=== PATIENT | female | born 1965 | race Caucasian/White ===

== ENCOUNTER 2017-05-28 20:05 | Emergency (ER) | payer BC, OTHER ==
[~2017-05-28] VITALS: Ht 160 cm; Wt 112.5 kg
[~2017-05-28 20:05] MED LIST: DIPH25CA58; FOLI1TAB16 PO; HYDR-971 PO; METH2.5T PO; METH25VI27; PRED5SOL
[2017-05-28] MEDS ORDERED: KETOROLAC 30 MG/ML VIAL. ONE (20:24)
[2017-05-28] MEDS ORDERED: KETOROLAC 30 MG/ML VIAL. IM ONE (20:30)
--- NOTE | 2017-05-28 21:07 | RAD ---
3 view study of the right wrist HISTORY: Twisting injury with right wrist pain. FINDINGS: No acute fracture or dislocation or osteolytic process is seen. 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 IMPRESSION: No acute fracture. Electronically signed by: Shin Crawford MD (05/28/2017 9:04 PM) [facility]
--- NOTE | 2017-05-28 22:00 | PHYS DOC ---
Past History Past Medical History: Arthritis Past Surgical History: Other Smoking: Non-smoker Alcohol Use: None Drug Use: None Adult General Chief Complaint Chief Complaint: WRIST PAIN HPI HPI 81-year-old female with a history of arthritis now status post right wrist injury. Patient was pushing down on a table while getting out of a chair when she felt sudden discomfort in her right wrist and it's been sore since. Injury happened earlier today. She had no fall or other injury to it. trace swelling no ecchymosis. Review of Systems Review of Systems Constitutional: Denies fever or chills [] Eyes: Denies change in visual acuity, redness, or eye pain [] HENT: Denies nasal congestion or sore throat [] Respiratory: Denies cough or shortness of breath [] Cardiovascular: No additional information not addressed in HPI [] GI: Denies abdominal pain, nausea, vomiting, bloody stools or diarrhea [] : Denies dysuria or hematuria [] Musculoskeletal: Denies back pain or joint pain [] Integument: Denies rash or skin lesions [] Neurologic: Denies headache, focal weakness or sensory changes [] Endocrine: Denies polyuria or polydipsia [] Current Medications Current Medications Current Medications Medications (Trade) Dose Ordered Sig/Traci Start Time Stop Time Status Last Admin Dose Admin Ketorolac Tromethamine (Toradol) 30 mg STK-MED ONCE 05/28/17 20:24 05/28/17 20:25 DC Allergies Allergies Allergies Coded Allergies Type Severity Reaction Last Updated Verified infliximab Allergy Severe ANAPHYLAXIS 08/20/15 Yes gelatin Allergy Intermediate 08/20/15 Yes latex Allergy Intermediate 12/17/13 Yes Physical Exam Physical Exam Well-appearing patient no acute distress mild soft tissue tenderness mid right wrist on the dorsum. No bony tenderness or deformity. Neurovascularly intact distally. Constitutional: Well developed, well nourished, no acute distress, non-toxic appearance. [] HENT: Normocephalic, atraumatic, bilateral external ears normal, oropharynx moist, no oral exudates, nose normal. [] Eyes:, EOMI, conjunctiva normal, no discharge. [] Neck: Normal range of motion, no tenderness, supple, no stridor. [] Cardiovascular: No tachycardia Lungs & Thorax: Normal and symmetrical chest wall excursion Abdomen distended abdomen Skin: Warm, dry, no erythema, no rash. [] Back: No tenderness, no CVA tenderness. [] Extremities: No tenderness, no cyanosis, no clubbing, ROM intact, no edema. [] Neurologic: Alert and oriented X 3, normal motor function, normal sensory function, no focal deficits noted. [] Psychologic: Affect normal, judgement normal, mood normal. [] Current Patient Data Vital Signs Vital Signs Date Time Temp Pulse Resp B/P (MAP) Pulse Ox O2 Delivery O2 Flow Rate FiO2 05/28/17 20:05 98.0 96 20 98 Room Air EKG EKG [] Radiology/Procedures Radiology/Procedures X-ray right wrist with chronic changes accessory center of ossification distal to ulnar styloid as well as radial aspect of carpal bones. Chronic changes no acute disease. Interpreted by me and report reviewed[] Course & Med Decision Making Course & Med Decision Making Pertinent Labs and Imaging studies reviewed. (See chart for details) Signs and symptoms consistent with mild right wrist sprain confirmed by x-ray. Patient predisposed to discomfort given history of arthritis. Splint applied. Patient were to rest ice and elevate. She will take NSAIDs and follow up with primary care doctor for reevaluation and referral to orthopedics as needed. [] Dragon Disclaimer Dragon Disclaimer This chart was dictated in whole or in part using Voice Recognition software in a busy, high-work load, and often noisy Emergency Department environment. It may contain unintended and wholly unrecognized errors or omissions. Departure Departure: Impression: Primary Impression: Sprain of right wrist Additional Impression: Right wrist pain Disposition: 01 HOME, SELF-CARE Condition: GOOD Referrals: ZIGGY GAITAN APRN (PCP) Patient Instructions: Wrist Sprain with [facility] Additional Instructions: You have suffered a right wrist sprain. Rest ice and elevate whenever possible. Take ibuprofen every 6 hours as needed for pain and wear splint removing only for bathing until follow-up with orthopedics in 2 days. Avoid strenuous use of that wrist and hand until cleared by orthopedics. Problem Qualifiers JOSIE THACKER MD May 28, 2017 22:00
[2017-05-28 22:06] VITALS: BP 157/81
== END 2017-05-28 22:06 | disposition home or self-care (01) ==
LOC: ER 20:05
DX: S63.501A Unspecified sprain of right wrist, initial encounter (principal); M19.90 Unspecified osteoarthritis, unspecified site; Z88.8 Allergy status to other drugs, medicaments and biological substances; Z91.040 Latex allergy status; X58.XXXA Exposure to other specified factors, initial encounter; Y93.89 Activity, other specified; Y99.8 Other external cause status; Y92.89 Other specified places as the place of occurrence of the external cause
CPT/HCPCS: 29125; 73110; 96372; 99284; J1885

== ENCOUNTER 2017-06-13 07:08 | Emergency (ER) | payer BC ==
[2017-06-13] MEDS ORDERED: KETOROLAC 30 MG/ML VIAL. IM ONE (08:15)
[2017-06-13] MEDS ORDERED: KETOROLAC 60 MG/2 ML VIAL. IM ONE (08:15)
[2017-06-13] MEDS ORDERED: methylPREDNISolone SOD SUCC PF 40 MG/ML VIAL. IM ONE (08:15)
[2017-06-13] MEDS ORDERED: PRED-220 PO (08:17)
--- NOTE | 2017-06-13 08:18 | PHYS DOC ---
Past History Past Medical History: Arthritis Past Surgical History: Other Smoking: Non-smoker Alcohol Use: None Drug Use: None Adult General Chief Complaint Chief Complaint: LOWER EXT PAIN HPI HPI Patient is a 51 year old F who presents with constant dull L knee pain that is worse with movement and palpation. She states that his more painful when she bears weight. Her pain improved with rest and positioning. She does have a history of rheumatoid arthritis. She has been unable to receive treatment as she is unable to afford co-pays associated with her doctor's visits. She's been off medication for the past 6 years. Prior to this she was on disease modifying medications and was told that she had a severe form of rheumatoid arthritis. This feels similar to previous flares of rheumatoid arthritis which were improved with steroids. Review of Systems Review of Systems Constitutional: Denies fever or chills [] Eyes: Denies change in visual acuity, redness, or eye pain [] HENT: Denies nasal congestion or sore throat [] Respiratory: Denies cough or shortness of breath [] Cardiovascular: No additional information not addressed in HPI [] GI: Denies abdominal pain, nausea, vomiting, bloody stools or diarrhea [] : Denies dysuria or hematuria [] Musculoskeletal: Negative except history of present illness Integument: Denies rash or skin lesions [] Neurologic: Denies headache, focal weakness or sensory changes [] Endocrine: Denies polyuria or polydipsia [] All other systems were reviewed and found to be within normal limits, except as documented in this note. Family History Family History Noncontributory Current Medications Current Medications Medications reviewed Allergies Allergies Allergies Coded Allergies Type Severity Reaction Last Updated Verified infliximab Allergy Severe ANAPHYLAXIS 08/20/15 Yes gelatin Allergy Intermediate 08/20/15 Yes latex Allergy Intermediate 12/17/13 Yes Physical Exam Physical Exam Constitutional: Well developed, well nourished, no acute distress, non-toxic appearance. [] HENT: Normocephalic, atraumatic, Eyes: PERRLA, EOMI, conjunctiva normal, no discharge. [] Neck: Normal range of motion, no tenderness, supple, no stridor. [] Cardiovascular:Heart rate regular rhythm Lungs & Thorax: Bilateral breath sounds clear to auscultation [] Abdomen: Bowel sounds normal, soft, no tenderness, no masses, no pulsatile masses. [] Skin: Warm, dry, no erythema, no rash. [] Back: No tenderness, no CVA tenderness. [] Extremities: Mild swelling in the left knee. Generalized tenderness to palpation. Pain with range of motion and limitation of extension by approximately 10-15. Strength 5 out of 5 bilateral lower extremities. Neurovascularly intact Neurologic: Alert and oriented X 3, normal motor function, normal sensory function, no focal deficits noted. [] Psychologic: Affect normal, judgement normal, mood normal. [] Current Patient Data Vital Signs Vital Signs Date Time Temp Pulse Resp B/P (MAP) Pulse Ox O2 Delivery O2 Flow Rate FiO2 06/13/17 08:46 77 18 114/72 (86) 95 Room Air 06/13/17 07:08 97.5 91 18 94 Room Air EKG EKG [] Radiology/Procedures Radiology/Procedures Imaging was declined Course & Med Decision Making Course & Med Decision Making Pertinent Labs and Imaging studies reviewed. (See chart for details) Previous records were reviewed Dragon Disclaimer Dragon Disclaimer This electronic medical record was generated, in whole or in part, using a voice recognition dictation system. Departure Departure: Impression: Primary Impression: Rheumatoid arthritis flare Disposition: HOME, SELF-CARE Condition: STABLE Referrals: DALTON VOSS MD (PCP) Patient Instructions: Rheumatoid Arthritis Additional Instructions: Elizabeth was seen in the emergency department for left knee pain. No emergency medical condition was found on history or physical exam. Her symptoms are most consistent with rheumatoid arthritis flare. She was given medication in the ER as well as a prescription for prednisone. She is advised to return the emergency room if she develops new or worsening symptoms. She is also advised follow-up with her computer mechanic as soon as possible for further management. Scripts Diclofenac Sodium (VOLTAREN) 100 Gm Gel..gram. 1 GM TP QID, #100 GM 2 Refills Prov: LESA SAGASTUME MD 06/13/17 Diclofenac Sodium (VOLTAREN) 100 Gm Gel..gram. 1 GM TP QID, #100 GM 2 Refills Prov: LESA SAGASTUME MD 06/13/17 Prednisone (PREDNISONE) 10 Mg Tablet 10 MG PO DAILY for 16 Days, #40 TAB 4tab x 4days, 3tabs x 4days, 2 tabs x 4days, 1tab x 4days Prov: LESA SAGASTUME MD 06/13/17 LESA SAGASTUME MD Jun 13, 2017 08:18
[2017-06-13 08:46] VITALS: BP 114/72
[2017-06-13] MEDS ORDERED: DICL100G18 TP ×2 (08:46→08:47)
== END 2017-06-13 08:46 | disposition home or self-care (01) ==
LOC: ER 07:08
DX: M06.862 Other specified rheumatoid arthritis, left knee (principal); Z88.8 Allergy status to other drugs, medicaments and biological substances; Z91.040 Latex allergy status
CPT/HCPCS: 96372; 99284; J1885; J2920

== ENCOUNTER 2017-08-05 18:54 | Emergency (ER) | payer BC ==
[~2017-08-05] VITALS: Ht 160 cm; Wt 111.3 kg
[~2017-08-05 18:54] MED LIST changes: +DICL100G18 TP; +PRED-220 PO
[2017-08-05 19:00] VITALS: BP 167/88
[2017-08-05] MEDS ORDERED: KETOROLAC 60 MG/2 ML VIAL. IM ONE (20:00)
[2017-08-05] MEDS ORDERED: TRAM1TAB56 PO (20:06)
--- NOTE | 2017-08-05 20:06 | PHYS DOC ---
Past History Past Medical History: Arthritis Past Surgical History: Other Smoking: Non-smoker Alcohol Use: None Drug Use: None Adult General Chief Complaint Chief Complaint: UPPER EXTREMITY INJURY HPI HPI Patient is a 5 51-year-old female who presents with complaint of isolated right upper extremity pain that is similar to previous flares of arthritis. No recent trauma. No fevers, no chills, no changes of the skin. Review of Systems Review of Systems Constitutional: Denies fever or chills [] Eyes: Denies change in visual acuity, redness, or eye pain [] HENT: Denies pain Respiratory: Denies cough or shortness of breath [] Cardiovascular: No pain GI: Denies abdominal pain, nausea, vomiting, Musculoskeletal: Denies back pain or joint pain except for right upper arm pain Integument: Denies rash or skin lesions [] Neurologic: Denies headache, focal weakness or sensory changes [] All other systems were reviewed and found to be within normal limits, except as documented in this note. Current Medications Current Medications Current Medications Medications (Trade) Dose Ordered Sig/Traci Start Time Stop Time Status Last Admin Dose Admin Ketorolac Tromethamine (Toradol) 60 mg 1X ONCE 08/05/17 20:00 08/05/17 20:01 UNV Allergies Allergies Allergies Coded Allergies Type Severity Reaction Last Updated Verified infliximab Allergy Severe ANAPHYLAXIS 08/20/15 Yes gelatin Allergy Intermediate 08/20/15 Yes latex Allergy Intermediate 12/17/13 Yes Physical Exam Physical Exam Constitutional: Well developed, well nourished, no acute distress, non-toxic appearance. [] HENT: Normocephalic, atraumatic, Eyes: EOMI, conjunctiva normal, no discharge. [] Neck: Normal range of motion, , no stridor. [] Cardiovascular:Heart rate regular rhythm, no murmur, normal perfusion Lungs & Thorax: No tachypnea Abdomen: No distention Skin: Warm, dry, no erythema, no rash. No signs of infection. No bruising, no ecchymosis, no swelling Back: No tenderness, no CVA tenderness. Normal range of motion Extremities: No tenderness, no cyanosis, no clubbing, ROM intact, no edema. No DVT, neurovascularly intact distally. Patient is able to range arm and hold it up. No signs of septic joint in the upper extremity right Neurologic: Alert and oriented X 3, normal motor function,, no focal deficits noted. [] Psychologic: Affect normal, judgement normal, mood normal. [] EKG EKG [] Radiology/Procedures Radiology/Procedures [] Course & Med Decision Making Course & Med Decision Making Pertinent Labs and Imaging studies reviewed. (See chart for details) [] Dragon Disclaimer Dragon Disclaimer This electronic medical record was generated, in whole or in part, using a voice recognition dictation system. Departure Departure: Impression: Primary Impression: Upper arm pain Disposition: HOME, SELF-CARE Condition: LEFT WITHOUT BEING SEEN Referrals: DALTON VOSS MD (PCP) Please follow-up for with your doctor for recheck and relation in 2 days Patient Instructions: Arthritis, Nonspecific, Muscle Strain Scripts Tramadol Hcl/Acetaminophen (ULTRACET TABLET) 1 Each Tablet 1 TAB PO Q6HRS for 2 Days, #8 TAB Prov: Zaida CAMERON MD 08/05/17 Zaida CAMERON MD Aug 05, 2017 20:06
== END 2017-08-05 20:27 | disposition home or self-care (01) ==
LOC: ER 18:54
DX: M79.601 Pain in right arm (principal); M19.90 Unspecified osteoarthritis, unspecified site; Z88.8 Allergy status to other drugs, medicaments and biological substances; Z91.040 Latex allergy status
CPT/HCPCS: 96372; 99283; J1885

== ENCOUNTER 2019-04-25 07:43 | Emergency (ER) | payer BC ==
[~2019-04-25] VITALS: Ht 160 cm; Wt 94.3 kg
[~2019-04-25 07:43] MED LIST changes: +HYDR-3165 PO; -HYDR-971 PO; +TRAM1TAB56 PO
[2019-04-25 07:55] VITALS: BP 126/82
[2019-04-25] MEDS ORDERED: PRED-220 PO (08:19)
--- NOTE | 2019-04-25 08:20 | PHYS DOC ---
Past History Past Medical History: Arthritis Past Surgical History: Knee Replacement, Other Additional Past Surgical Histo: Left heel repair Smoking: Non-smoker Alcohol Use: None Drug Use: None Adult General Chief Complaint Chief Complaint: WRIST PAIN HPI HPI 53-year-old female presents with right wrist pain. Patient came home after work yesterday was having pain in her right wrist and throughout her right hand. It has swollen more overnight. The patient has a history of osteoarthritis as well as rheumatoid arthritis. She has not been taking chronic rheumatoid arthritis medication, 7 years. She has not taken any medication for this pain. She denies any trauma. She denies fever or chills. She has no other complaints at this time. Review of Systems Review of Systems Constitutional: Denies fever or chills [] Eyes: Denies change in visual acuity, redness, or eye pain [] HENT: Denies nasal congestion or sore throat [] Respiratory: Denies cough or shortness of breath [] Cardiovascular: No additional information not addressed in HPI [] GI: Denies abdominal pain, nausea, vomiting, bloody stools or diarrhea [] : Denies dysuria or hematuria [] Musculoskeletal: Right hand and wrist pain.[] Integument: Denies rash or skin lesions [] Neurologic: Denies headache, focal weakness or sensory changes [] Endocrine: Denies polyuria or polydipsia [] All other systems were reviewed and found to be within normal limits, except as documented in this note. Allergies Allergies Allergies Coded Allergies Type Severity Reaction Last Updated Verified infliximab Allergy Severe ANAPHYLAXIS 08/20/15 Yes gelatin Allergy Intermediate 08/20/15 Yes latex Allergy Intermediate 12/17/13 Yes Physical Exam Physical Exam Constitutional: Well developed, well nourished, no acute distress, non-toxic appearance. [] HENT: Normocephalic, atraumatic, bilateral external ears normal, oropharynx moist, no oral exudates, nose normal. [] Eyes: PERRLA, EOMI, conjunctiva normal, no discharge. [] Neck: Normal range of motion, no tenderness, supple, no stridor. [] Cardiovascular:Heart rate regular rhythm, no murmur [] Lungs & Thorax: Bilateral breath sounds clear to auscultation [] Abdomen: Bowel sounds normal, soft, no tenderness, no masses, no pulsatile masses. [] Skin: Warm, dry, no erythema, no rash. [] Back: No tenderness, no CVA tenderness. [] Extremities: Tenderness with palpation of right wrist and hand, some swelling, no obvious deformity or ecchymosis.[] Neurologic: Alert and oriented X 3, normal motor function, normal sensory function, no focal deficits noted. [] Psychologic: Affect normal, judgement normal, mood normal. [] Current Patient Data Vital Signs Vital Signs Date Time Temp Pulse Resp B/P (MAP) Pulse Ox O2 Delivery O2 Flow Rate FiO2 04/25/19 07:55 97.9 84 18 95 Room Air EKG EKG [] Radiology/Procedures Radiology/Procedures [] Impressions: Examination: WRIST 3V RIGHT History: Pain and swelling. No injury. Comparison/Correlation: None Findings: Total 3 images of the right wrist were obtained. First carpometacarpal joint degenerative spurring is noted with remodeling of the joint space. No acute fracture or bone destruction. Bony density distal to the ulnar styloid may represent an old nonunion fracture or accessory ossification center. Soft tissues are unremarkable. Impression: Degenerative changes of the first carpometacarpal joint. Electronically signed by: Portillo Bauer MD (04/25/2019 8:24 AM) [facility] DICTATED AND SIGNED BY: PORTILLO BAUER MD DATE: 04/25/19823 CC: FLOR ODOM DO; DALTON VOSS MD ~ Course & Med Decision Making Course & Med Decision Making Pertinent Labs and Imaging studies reviewed. (See chart for details) The patient's x-ray is negative for acute findings. See official report for more details. I will treat the patient for an arthritis flare. We will give her 40 mg of prednisone in the ER followed by a 7 day taper. She is stable for discharge at this time. [] Dragon Disclaimer Dragon Disclaimer This electronic medical record was generated, in whole or in part, using a voice recognition dictation system. Departure Departure: Impression: Primary Impression: Rheumatoid arthritis flare Disposition: 01 HOME, SELF-CARE Condition: STABLE Referrals: DALTON VOSS MD (PCP) Patient Instructions: Rheumatoid Arthritis, [id number] Scripts Prednisone (PREDNISONE) 10 Mg Tablet 10 MG PO UD for PREDNISONE TAPER, #15 TAB 0 Refills Take 4 tablets by mouth daily for 2 days, then take 2 tablets by mouth daily for 2 days, then take 1 tablet by mouth daily x 3 days, then stop. Prov: FLOR ODOM DO 04/25/19 FLOR ODOM DO Apr 25, 2019 08:19
--- NOTE | 2019-04-25 08:27 | RAD ---
Examination: WRIST 3V RIGHT History: Pain and swelling. No injury. Comparison/Correlation: None Findings: Total 3 images of the right wrist were obtained. First carpometacarpal joint degenerative spurring is noted with remodeling of the joint space. No acute fracture or bone destruction. Bony density distal to the ulnar styloid may represent an old nonunion fracture or accessory ossification center. Soft tissues are unremarkable. Impression: Degenerative changes of the first carpometacarpal joint. Electronically signed by: Johnny Pepper MD (04/25/2019 8:24 AM) [facility]
[2019-04-25] MEDS ORDERED: predniSONE 20 MG TABLET ONE (08:38)
[2019-04-25] MEDS ORDERED: predniSONE 20 MG TABLET PO ONE (09:00)
== END 2019-04-25 08:45 | disposition home or self-care (01) ==
LOC: ER 07:43
DX: M06.831 Other specified rheumatoid arthritis, right wrist (principal); Z88.8 Allergy status to other drugs, medicaments and biological substances; Z91.040 Latex allergy status
CPT/HCPCS: 73110; 99284; J7512

== ENCOUNTER 2019-08-05 08:28 | Emergency (ER) | payer BC ==
[~2019-08-05] VITALS: Ht 160 cm; Wt 124.7 kg
[~2019-08-05 08:28] MED LIST changes: +OSEL75CA PO
--- NOTE | 2019-08-05 09:17 | PHYS DOC ---
Past History Past Medical History: Other Additional Past Medical Histor: "gallbladder problem, no stones", "fat on liver, open on intestine wide",RA Past Surgical History: Other Additional Past Surgical Histo: rt ooporectomy, rt knee, left heel Alcohol Use: None Drug Use: None Adult General Chief Complaint Chief Complaint: CHEST PAIN-NON CARDIAC NATURE HPI HPI 53-year-old female presents with chest pain. The patient has been battling influenza B, bronchitis, sinus infection. I saw the patient on and diagnosed her with influenza. It has been about 2 weeks since that time. The patient presents today because she has developed a central chest discomfort. She describes it as a squeezing pain that is moderate in intensity. She's never had chest pain before and this made her more concerned. She no longer has a fever. She has continued to cough throughout her illness. Her shortness of breath is not worse, but she has been using albuterol every 4 hours for the last 1-2 days. Review of Systems Review of Systems Constitutional: Denies fever or chills [] Eyes: Denies change in visual acuity, redness, or eye pain [] HENT: nasal congestion [] Respiratory: Cough with shortness of breath [] Cardiovascular: No additional information not addressed in HPI [] GI: Denies abdominal pain, nausea, vomiting, bloody stools or diarrhea [] : Denies dysuria or hematuria [] Musculoskeletal: Denies back pain or joint pain [] Integument: Denies rash or skin lesions [] Neurologic: Denies headache, focal weakness or sensory changes [] Endocrine: Denies polyuria or polydipsia [] All other systems were reviewed and found to be within normal limits, except as documented in this note. Allergies Allergies Allergies Coded Allergies Type Severity Reaction Last Updated Verified abatacept Allergy Intermediate 08/05/19 Yes gelatin Allergy Intermediate 08/05/19 Yes amoxicillin Allergy Unknown Itching 08/05/19 Yes infliximab Allergy Unknown 08/05/19 Yes Physical Exam Physical Exam Constitutional: Well developed, well nourished, no acute distress, non-toxic appearance. [] HENT: Normocephalic, atraumatic, bilateral external ears normal, oropharynx moist, no oral exudates, nose normal. [] Eyes: PERRLA, EOMI, conjunctiva normal, no discharge. [] Neck: Normal range of motion, no tenderness, supple, no stridor. [] Cardiovascular:Heart rate regular rhythm, no murmur [] Lungs & Thorax: Bilateral breath sounds clear to auscultation [] Abdomen: Bowel sounds normal, soft, no tenderness, no masses, no pulsatile masses. [] Skin: Warm, dry, no erythema, no rash. [] Back: No tenderness, no CVA tenderness. [] Extremities: No tenderness, no cyanosis, no clubbing, ROM intact, no edema. [] Neurologic: Alert and oriented X 3, normal motor function, normal sensory function, no focal deficits noted. [] Psychologic: Affect normal, judgement normal, mood normal. [] Current Patient Data Vital Signs Vital Signs Date Time Temp Pulse Resp B/P (MAP) Pulse Ox O2 Delivery O2 Flow Rate FiO2 08/05/19 08:38 98.5 92 18 96 Room Air EKG EKG Sinus rhythm, rate 75, normal axis, no ST elevations or depressions.[] Radiology/Procedures Radiology/Procedures [] Impressions: CHEST PA LATERAL Clinical indications: Cough and chest pain COMPARISON: April 23, 2019. Findings: No acute lung infiltrate or pleural effusion or pulmonary edema or lung mass or pneumothorax is seen. The heart size, pulmonary vasculature, mediastinum and both charline are unremarkable. The osseous structures appear intact. Impression: No acute radiographic abnormality is seen. Electronically signed by: Alvaro Crawford MD (08/05/2019 9:20 AM) [id number] DICTATED AND SIGNED BY: ALVARO CRAWFORD MD DATE: 08/05/19 0920 CC: FLOR ODOM DO; DALTON VOSS MD ~ Course & Med Decision Making Course & Med Decision Making Pertinent Labs and Imaging studies reviewed. (See chart for details) The patient's EKG is unremarkable. Her chest x-rays negative for acute findings. Her troponin is negative. Her other labs are unremarkable. I believe the patient's chest discomfort is musculoskeletal from coughing. I inform the patient she may continue to cough for a few more weeks due to some respiratory illnesses. She is stable for discharge at this time. [] Dragon Disclaimer Dragon Disclaimer This electronic medical record was generated, in whole or in part, using a voice recognition dictation system. Departure Departure: Impression: Primary Impression: Chest wall pain Additional Impression: Cough in adult Disposition: 01 HOME, SELF-CARE Condition: STABLE Referrals: DALTON VOSS MD (PCP) Patient Instructions: Chest Wall Pain, [id number] Problem Qualifiers FLOR ODOM DO Aug 05, 2019 09:17
--- NOTE | 2019-08-05 09:22 | RAD ---
CHEST PA LATERAL Clinical indications: Cough and chest pain COMPARISON: April 23, 2019. Findings: No acute lung infiltrate or pleural effusion or pulmonary edema or lung mass or pneumothorax is seen. The heart size, pulmonary vasculature, mediastinum and both charline are unremarkable. The osseous structures appear intact. Impression: No acute radiographic abnormality is seen. Electronically signed by: Shin Crawford MD (08/05/2019 9:20 AM) [id number]
[2019-08-05] MEDS ORDERED: IV NORMAL SALINE 1,000ML 1,000 ML IV ONE (09:30)
[2019-08-05 09:38] LABS: BASO # 0.1 x10^3/uL (0.0-0.2); BASO % 1 % (0-3); EOS # 0.1 x10^3/uL (0.0-0.7); EOS % 1 % (0-3); HEMATOCRIT 46.4 % (36.0-47.0); HEMOGLOBIN 15.7 g/dL (12.0-15.5); LYMPH # 1.6 x10^3/uL (1.0-4.8); LYMPH % 24 % (24-48); MEAN CORPUSCULAR HEMOGLOBIN 31 pg (25-35); MEAN CORPUSCULAR HGB CONC 34 g/dL (31-37); MEAN CORPUSCULAR VOLUME 92 fL (79-100); MONO # 0.7 x10^3/uL (0.0-1.1); MONO % 10 % (0-9); NEUT # 4.1 x10^3uL (1.8-7.7); NEUT % 63 % (31-73); PLATELET COUNT 254 x10^3/uL (140-400); RED BLOOD COUNT 5.04 x10^6/uL (3.50-5.40); RED CELL DISTRIBUTION WIDTH 13.7 % (11.5-14.5); WHITE BLOOD COUNT 6.5 x10^3/uL (4.0-11.0)
[2019-08-05 09:45] LABS: CREATININE 0.8 mg/dL (0.6-1.0); GFR 74.7; POTASSIUM 4.4 mmol/L (3.5-5.1)
[2019-08-05 09:51] LABS: ALBUMIN 3.2 g/dL (3.4-5.0); ALBUMIN/GLOBULIN RATIO 0.8 (1.0-1.7); TOTAL BILIRUBIN 0.6 mg/dL (0.2-1.0); TOTAL PROTEIN 7.2 g/dL (6.4-8.2)
[2019-08-05 10:39] VITALS: BP 140/76
--- NOTE | 2019-08-06 00:54 | EKG ---
[address] [address] Test Date: 2019-08-05 Test Time: 09:47:46 Pat Name: JANET FOY Department: Room: Gender: F Grades 9 12 Tutor: : 1965 Requested By: FLOR ODOM Order Number: [id number] Reading MD: Measurements Intervals Benoit Rate: 75 P: 39 RI: 128 QRS: 28 QRSD: 82 T: 64 QT: 368 QTc: 413 Interpretive Statements SINUS RHYTHM NO SPECIFIC ECG ABNORMALITIES RI6.01 No previous ECG available for comparison
== END 2019-08-05 10:42 | disposition home or self-care (01) ==
LOC: MERGE 08:28 → ER 08:28
DX: R07.89 Other chest pain (principal); Z88.8 Allergy status to other drugs, medicaments and biological substances; Z88.1 Allergy status to other antibiotic agents
CPT/HCPCS: 36415; 71046; 80053; 84484; 85025; 93005; 99285-25; J7030

== ENCOUNTER 2021-09-12 19:54 | Emergency (ER) | payer OTHER, MEDICAID ==
[~2021-09-12] VITALS: Ht 160 cm; Wt 113.0 kg
[2021-09-12 20:16] VITALS: BP 147/83
[2021-09-12] MEDS ORDERED: ACETAMINOPHEN 325 MG TABLET PO ONE (20:45)
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
== END 2021-09-12 23:24 | disposition home or self-care (01) ==
LOC: ER 19:54
DX: S40.011A Contusion of right shoulder, initial encounter (principal); M54.59 Other low back pain; M19.90 Unspecified osteoarthritis, unspecified site; Z91.040 Latex allergy status; Z88.1 Allergy status to other antibiotic agents; Z88.8 Allergy status to other drugs, medicaments and biological substances; V89.2XXA Person injured in unspecified motor-vehicle accident, traffic, initial encounter; Y93.I9 Activity, other involving external motion; Y92.89 Other specified places as the place of occurrence of the external cause; Y99.8 Other external cause status
CPT/HCPCS: 72100; 72131; 73030; 99284